=== PATIENT | female | born 1990 | race Caucasian/White ===

== ENCOUNTER 2016-11-28 02:04 | Outpatient (CLI) | payer BC, OTHER ==
[~2016-11-28] VITALS: Ht 162.6 cm; Wt 79.5 kg
[~2016-11-28 02:04] MED LIST: BCPILLS PO; VITAMINS
[2016-11-28] MEDS ORDERED: PRENTAB26 PO (03:38)
[2016-11-28 03:39] VITALS: Ht 162.6 cm; Wt 79.5 kg
[2016-11-28] MEDS ORDERED: VALA1TAB2 PO (03:50)
--- NOTE | 2016-11-28 05:12 | Discharge Instructions ---
Discharge Instructions Date of Service Nov 28, 2016. Admission Reason for Admission: Iup,Labor Check Discharge Discharge Diagnosis / Problem: No LOF Discharge Goals Goal(s): Continuing OB care Activity Recommendations Activity Limitations: as noted below Lifting Limitations: no more than 10 pounds Exercise/Sports Limitations: until after follow-up appointment May Resume Sexual Activity: after follow-up appointment Shower/Bathe: no limitations Driving or Machine Use: no limitations SPECIAL CARE INSTRUCTIONS: Call Doctor if: * Regular contractions every 5 minutes or greater than 5 contractions in one hour. * Bleeding * Water breaks or is leaking * Decreased movement * Fever >100.4 degrees F * Pain not relieved by routine measures or pain medication ordered. FOLLOW UP VISIT: Return to Labor and Delivery on for /call for appointment time . Follow-up Visit with: When: . Current Hospital Diet Patient's current hospital diet: Discharge Diet Recommended Diet: Regular Diet Pending Studies Studies pending at discharge: yes List of pending studies: GARETH Medical Emergencies . Who to Call and When: Medical Emergencies: If at any time you feel your situation is an emergency, please call 911 immediately. . Non-Emergent Contact Non-Emergency issues call your: Surgeon Call Non-Emergent contact if: temperature is above 100.5 . . "Provider Documentation" section prepared by Catarina Maurer. VTE Core Measure Inpt VTE Proph given/why not?: Treatment not indicated
[2016-12-01] MEDS ORDERED: MTR600X PO (09:46)
== END 2016-11-28 05:21 | disposition home or self-care (01) ==
LOC: C.LD 02:04 → C.OPB 02:04 → EDSTATUS 11-30 02:03
PROVIDERS: ATTEND Obstetrics & Gynecology
DX: O62.9 Abnormality of forces of labor, unspecified (principal); Z3A.39 39 weeks gestation of pregnancy

== ENCOUNTER 2016-11-29 08:13 | Inpatient (IN) | payer BC ==
[~2016-11-29] VITALS: Ht 162.6 cm; Wt 79.5 kg
[~2016-11-29 08:13] MED LIST changes: -BCPILLS PO; +PRENTAB26 PO; +VALA1TAB2 PO; -VITAMINS
[2016-11-29 08:30] VITALS: Ht 162.6 cm; Wt 79.5 kg
[2016-11-29] MEDS ORDERED: LACTATED RINGER'S 1000ML 1,000 ML IV PRN (09:06)
[2016-11-29] MEDS ORDERED: LACTATED RINGER'S 1000ML 1,000 ML IV SCH (09:06)
[2016-11-29 09:41] LABS: HEMATOCRIT 40.3 % (37-47); MEAN CELL VOLUME 85.7 fL (80-100); MEAN CORPUSCULAR HEMOGLOBIN 30.9 pg (25-34); MEAN PLATELET VOLUME 10.7 fL (7.4-10.4); PLATELET COUNT 259 K/uL (130-400); WHITE BLOOD COUNT 16.07 K/uL (4.8-10.8)
--- NOTE | 2016-11-29 11:26 | HISTORY & PHYSICAL EXAMINATION ---
DATE OF ADMISSION: 11/29/2016 The patient is a 26-year-old G1, P0, due date is 11/30/2016, making her 39 weeks and 6 days today. The patient presented to labor and delivery with complaints of contractions every 4-5 minutes. The patient was seen yesterday with GARETH of 6.0. She was scheduled for induction today anyway. On arrival in labor and delivery, the patient had no shortness of breath, no chills, no fever. heart rate is category 1. Pelvic exam by nurse shows she is 4 cm dilated. course has been unremarkable except for decreased GARETH of 6 when she was seen yesterday. Evaluation showed no rupture of membranes. PAST MEDICAL HISTORY: 1. History of bone fracture. 2. History of abnormal Pap smear. 3. History of endometriosis. 4. History of depression. 5. History of cold sores. PAST SURGICAL HISTORY: History of femur repair, colposcopy, dental surgery, and history of eyelid surgery. ALLERGIES: No known drug allergies. SOCIAL HISTORY: The patient denies tobacco, drug or alcohol use. PHYSICAL EXAMINATION: GENERAL: Well-developed, well-nourished white female, in no acute distress. HEART: S1, S2, regular rhythm and rate. LUNGS: Clear to auscultation bilaterally. ABDOMEN: Nontender, gravid. heart rate is category 1. EXTREMITIES: No cyanosis, clubbing or edema. PELVIC: The patient is 4 cm dilated. No lesions on the vulva. ASSESSMENT AND PLAN: 1. A 26-year-old G1, P0, at 39 and 6 weeks in labor. 2. Oligohydramnios, GARETH of 6.0. Plan is to anticipate vaginal delivery.
[2016-11-29] MEDS ORDERED: NURSING VERBAL MED ORDER ONE (17:30)
[2016-11-29] MEDS ORDERED: BUTORPHANOL TARTRATE 1 MG/ML VIAL IV ONE (17:30)
[2016-11-29] MEDS ORDERED: FENTANYL CITRATE INJ 50 MCG/1 ML 2 ML VIAL ONE (19:15)
[2016-11-29] MEDS ORDERED: BUPIVACAINE 0.25% 30 ML VIAL ONE (19:15)
[2016-11-29] MEDS ORDERED: FENTANYL 2MCG/ML ROPIV 1.25MG/ML 100ML BAG EPI ONE (19:15)
[2016-11-29] MEDS ORDERED: EpHEDrine SULFATE INJ 50 MG/ML AMP ONE (19:15)
[2016-11-29] MEDS ORDERED: NALOXONE HCL INJ 1 MG in SODIUM CHLORIDE 0.9% 1000ML 1,000 ML IV PRN (20:27)
[2016-11-29] MEDS ORDERED: LACTATED RINGER'S 1000ML 500 ML IV PRN ×2 (20:27→20:35)
[2016-11-29] MEDS ORDERED: NALOXONE HCL INJ 0.4 MG/1 ML VIAL/CARP IV PRN (20:30)
[2016-11-29] MEDS ORDERED: DiphenhydrAMINE HCL 50 MG/ML VIAL IV PRN (20:30)
[2016-11-29] MEDS ORDERED: EpHEDrine SULFATE INJ 50 MG/ML AMP IV PRN (20:30)
[2016-11-29] MEDS ORDERED: NALBUPHINE HCL INJ 10 MG/ML AMP IV PRN (20:30)
[2016-11-29] MEDS ORDERED: ONDANSETRON INJ 2 MG/ML 2 ML VIAL IV PRN (20:30)
[2016-11-29] MEDS ORDERED: FENTANYL 2MCG/ML ROPIV 1.25MG/ML 100ML BAG EPI PRN (20:30)
[2016-11-29] MEDS ORDERED: OXYTOCIN 30 UNITS/500ML NSS IV PRN (20:45)
[2016-11-30] MEDS ORDERED: OXYTOCIN 30 UNITS/500ML NSS IV PRN (00:45)
[2016-11-30] MEDS ORDERED: ACETAMINOPHEN/CODEINE 300/30MG TAB PO PRN ×2 (00:45)
[2016-11-30] MEDS ORDERED: OXYCODONE/ACETAMINOPHEN 5-325 TAB PO PRN (00:45)
[2016-11-30] MEDS ORDERED: ACETAMINOPHEN 325 MG TAB PO PRN (00:45)
--- NOTE | 2016-11-30 01:12 | Anesthesia Procedure Note ---
Anesthesia Epidural Removal Nt Date & Time Nov 30, 2016 at 01:12 Vital Signs Pain Intensity: 1.0 Notes Mental Status: alert / awake / arousable, participated in evaluation Nausea / Vomiting: adequately controlled Pain: adequately controlled Airway Patency, RR, SpO2: stable & adequate BP & HR: stable & adequate Hydration State: stable & adequate Neuraxial Anesthesia: was administered, sensory block is resolved Anesthetic Complications: no major complications apparent, pt satisfied with anesthetic care Epidural: removed without complications, with tip intact
[2016-11-30] MEDS: IBUPROFEN 600 MG TAB PO PRN ×4 (01:56→20:18)
[2016-11-30 03:30] VITALS: BP 130/72; PULSE 97; TEMP 36.7
[2016-11-30] MEDS ORDERED: BENZOCAINE 20% AER SPR 82.5 GM CAN ONE (05:11)
[2016-11-30] MEDS: PRENATAL VITAMIN TAB PO SCH (07:59)
[2016-11-30] MEDS: DOCUSATE SODIUM 100 MG CAP PO SCH ×2 (07:59→20:16)
--- NOTE | 2016-11-30 08:08 | DELIVERY SUMMARY ---
DATE OF OPERATION: 11/30/2016 DELIVERY NOTE The patient delivered a live female in occiput anterior presentation. Once infant was delivered it was placed on the mother's abdomen. Cord was clamped and cut. Cord gas and cord blood were obtained. Placenta was spontaneously delivered. Inspection of the perineum showed a second-degree midline laceration, which was repaired in layers with 2-0 Vicryl. Rectal exam post repair showed good sphincter tone. No sutures are palpated in the rectum. Estimated blood loss is 400 mL. The patient's weight is pending. Apgars are 8 and 9. The mother and baby are doing well in recovery status post hemostasis. All instruments were removed from the vagina and accounted for x2 including sponges and needles. I attest to the content of the Intraoperative Record and any orders documented therein. Any exceptio ns are noted below.
[2016-11-30 08:40] VITALS: BP 129/90; PULSE 60; TEMP 36.6
[2016-11-30 11:35] VITALS: BP 113/75; PULSE 87; TEMP 36.9
[2016-11-30] MEDS ORDERED: DIPHTHERIA/TETANUS/PERTUSSIS 0.5 ML SYR/VIAL IM. ONE (13:30)
[2016-11-30 15:30] VITALS: BP 121/80; PULSE 85; TEMP 37.1; O2SAT 98
[2016-11-30 20:05] VITALS: BP 122/80; PULSE 82; TEMP 37; O2SAT 97
[2016-11-30 23:35] VITALS: BP 118/76; PULSE 86; TEMP 36.9; O2SAT 98
[2016-12-01] MEDS: IBUPROFEN 600 MG TAB PO PRN ×2 (06:33→10:28)
[2016-12-01] MEDS: PRENATAL VITAMIN TAB PO SCH (07:59)
[2016-12-01] MEDS: DOCUSATE SODIUM 100 MG CAP PO SCH (07:59)
[2016-12-01 08:24] LABS: HEMATOCRIT 32.8 % (37-47)
[2016-12-01 08:30] VITALS: BP 119/75; PULSE 73; TEMP 36.6; O2SAT 98
--- NOTE | 2016-12-01 09:45 | OB/GYN Progress Note ---
[employer] Progress Note Date of Service Dec 01, 2016. Subjective conversation w/ patient, physical exam Ambulation: ambulating normally Voiding: no voiding problems Passing Gas: Yes Diet Tolerance: Regular Diet Lochia: Moderate Feeding Type: Breast Feeding Review of Systems Constitutional: No chills, No fatigue, No fever, No problem reported, No sweats , No weakness, No weight loss Respiratory: No cough, No dyspnea at rest, No dyspnea on exertion, No hemoptysis, No problem reported, No shortness of breath, No sputum, No wheezing Cardiac: No PND, No chest pain, No claudication, No edema, No orthopnea, No palpitations, No problem reported Breast: No breast lump, No breast pain, No change in shape, No nipple discharge , No problem reported, No see HPI Abdomen: No GI bleeding, No constipation, No diarrhea, No nausea, No pain, No problem reported, No vomiting Female : No abnormal vaginal bleeding, No dysuria, No hematuria, No incontinence, No problem reported, No see HPI, No urinary frequency, No vaginal discharge Objective Vital Signs Date Time Temp Pulse Resp B/P Pulse Ox O2 Delivery O2 Flow Rate FiO2 12/01/16 08:30 36.6 73 20 119/75 98 Room Air 11/30/16 23:35 98 Room Air 11/30/16 23:35 36.9 86 16 118/76 98 Room Air 11/30/16 20:05 37.0 82 18 122/80 97 Room Air 11/30/16 15:30 98 Room Air 11/30/16 15:30 37.1 85 18 121/80 98 Room Air 11/30/16 11:35 36.9 87 20 113/75 Physical Exam General Appearance: WELL-APPEARING, WD/WN Respiratory/Chest: chest non-tender, lungs clear, normal breath sounds, no respiratory distress, no accessory muscle use Cardiovascular: regular rate, rhythm, no edema, no gallop, no JVD, no murmur Abdomen: normal bowel sounds, non tender, soft, no organomegaly, no pulsatile mass Fundus: Firm Incision Description: Clean, Dry & Intact Extremities: normal range of motion, non-tender, normal inspection, no pedal edema, no calf tenderness Laboratory Results Last 24 Hours Test 12/01/16 08:02 Hemoglobin 11.5 g/dL Hematocrit 32.8 % Assessment and Plan Day Number: 1 Continue Routine Care: VD day #1 pt doing well disch home with instructions
[2016-12-01] MEDS ORDERED: MTR600X PO (09:46)
--- NOTE | 2016-12-01 09:47 | Discharge Instructions ---
Discharge Instructions Date of Service Dec 01, 2016. Admission Reason for Admission: LABOR Discharge Discharge Diagnosis / Problem: Discharge Goals Goal(s): Routine recovery after delivery Activity Recommendations Activity Limitations: as noted below ACTIVITY RECOMMENDATIONS: * Gradual return to full activity over the next 2-3 weeks. * No lifting - nothing heavier than baby over the next 2-3 weeks. * Do not engage in vigorous exercise, sexual activity or sports until cleared by your physician. * Do not drive or operate any motorized equipment until cleared by your physician. * You may shower/bathe daily. BREAST CARE: If you are not breast feeding: * Wear a supportive bra 24 hours a day for one to two weeks. * Avoid stimulating your breasts and nipples as much as possible during the first few weeks after delivery. * When taking a shower, have the warm water hit your back, not breasts. * When your breasts feel full, apply ice packs. Usually three to four times a day helps ease the discomfort. * Take a mild pain medication (Tylenol/Motrin) when you are uncomfortable. If breast feeding: * Use breast milk to lubricate nipples. Lansinoh cream may be used for sore nipples. You do not need to remove cream prior to breast feeding. If using a different brand of cream, check the label for directions regarding removal of cream prior to nursing. * Wear a supportive bra. * If having problems with breasts or breast feeding, call a outside sales consultant or your health care provider. EPISIOTOMY CARE: After delivery, if you have an episiotomy (stitches), the following steps will ease discomfort and aid healing. * For the first 24 hours after delivery, place ice packs next to your episiotomy to help reduce swelling. * After the first 24 hour-period, sitz baths, either portable or in the tub, are suggested. A shower with a shower arm sprayed over the episiotomy may be comforting. * Shannon care should be done after each voiding and bowel movement. Squirt warm water from a plastic bottle over the perineum (region of the body between the anus and urinary opening) and pat dry. * Use Dermoplast to ease discomfort. Shake container. [place] directly over the episiotomy. * Place a Tucks on a clean sanitary pad next to your episiotomy. OVER THE COUNTER MEDICATION: * For discomfort or pain, you may use Acetaminophen (Tylenol), Ibuprofen (Advil ), or Naproxen (Aleve) following the package directions. * For constipation you may use Colace following the package directions. SPECIAL CARE INSTRUCTIONS: When you are discharged from the hospital, it is important for you to follow the instructions listed below: * During the first week at home, you should be able to care for yourself and your baby. In addition, the usual light household activities are encouraged. * Limit your activities to the way you feel. Do not try to clean the house or move furniture. Be sensible. * If you actively engage in sports and have done so up until the time of your delivery, you may resume these activities as soon as you feel able. This may take up to one month or even longer. Use good judgment. * Continue to take your vitamins for at least six weeks after the of your baby. * Your diet need not be limited unless you were on a special diet before your delivery. Breast-feeding mothers need around 2500 calories per day and at least 64-80 ounces of fluid per day (8 to 10 glasses). * You should eat foods from the four major food groups. Crash diets or fad diets are to be avoided. Eating lean meats, fresh fruits and vegetables, low-fat dairy products, high fiber foods and a regular exercise program, will help you get back to your pre- weight without putting your health at risk. * Constipation is sometimes a problem after delivery. Take a mild laxative as needed. If breast feeding, Milk of Magnesia is acceptable to use. You may use a suppository or Fleets enema if no episiotomy. * A daily shower or tub bath is suggested. Be sure to thoroughly and gently dry the perineum. * A bloody vaginal discharge will usually continue until around four weeks post . A small amount of bleeding may continue for as long as six weeks. Vaginal discharge changes from the bright red bleeding after delivery to pink then brownish and finally yellowish-pink before becoming white and disappearing. * Bleeding may increase with activity. Your first period may come in 4-8 weeks. If you are breast feeding, your period may be delayed even longer. * [place] (sex) can begin whenever both you and your partner feel comfortable and do not have any form of genital infection. It is recommended that you wait until after your return appointment and discuss with your physician. If you have questions, please talk to your health care practitioner. A condom should be used to prevent infection and . * Foreplay, gentle intercourse and lubrication is very important the first several times to prevent pain. A water-based lubricant such as K-Y jelly or Astroglide may be used. * Tampons may be used six weeks after delivery. * Douching should be avoided for 6 weeks after delivery. * If you have RH negative blood and your baby is RH positive, you will receive RHOGAM by injection prior to discharge. The nurse will give you a card to keep with you that has the date and place that you received RHOGAM after delivery. * During your care, you had a Rubella screen done to check for the presence of rubella antibodies in your blood. If your test was negative, you will receive a Rubella vaccine prior to discharge. This vaccine may cause a fever, soreness at the injection site and flu-like symptoms. If these symptoms persist, notify your health care practitioner. is not advised for three months after a Rubella vaccine. There is a higher chance of having a baby with defects if conceived within three months of getting the vaccine. * If you were discharged 24 hours from delivery or before 48 hours: Visiting nurses will come to your home 48 hours after discharge to assess you and your baby. The visiting nurse will meet with you while you are in the hospital to arrange a time and get directions to your home. * Verbalizes understanding of car seat law as reviewed with patient nursing. * Car Seat hand-out given and reviewed with patient by nursing. * Shaken baby information reviewed with patient by nursing. Call you doctor if: * Heavy bleeding (saturating several pads an hour) or passing clots the size of your fist. * A fever >101 degrees F (38.3 degrees C) on two occasions four hours apart and/or chills. * Unusual pain in the pelvic or vaginal areas. * "Baby Blues" lasting longer than two weeks. If you have any questions or concerns, call your health care practitioner at . FOLLOW-UP VISIT: * Please call the office at to schedule a 6 week examination. It is important you keep this appointment. * It is important for you to make arrangements for either yearly or twice yearly check-ups thereafter. . Current Hospital Diet Patient's current hospital diet: Regular OB Diet Discharge Diet Recommended Diet: Regular Diet Pending Studies Studies pending at discharge: no Medical Emergencies . Who to Call and When: Medical Emergencies: If at any time you feel your situation is an emergency, please call 911 immediately. . Non-Emergent Contact Non-Emergency issues call your: Specialist . . "Provider Documentation" section prepared by Joe Hairston. VTE Core Measure Inpt VTE Proph given/why not?: Treatment not indicated
[2016-12-01 13:30] VITALS: BP_DIAS 75; PULSE 73; TEMP 36.6
[2016-12-01] MEDS ORDERED: BISACODYL 5 MG TABEC PO SCH (20:00)
[2016-12-02] MEDS ORDERED: BISACODYL 10 MG SUPP PR PRN (07:00)
== END 2016-12-01 13:40 | disposition home or self-care (01) | DRG 775 ==
LOC: C.LD 08:13 → C.OPB 08:13 → C.LD 23:00 → C.OBG 11-30 10:39
PROVIDERS: ADMIT Obstetrics & Gynecology; ATTEND Obstetrics & Gynecology
PROC: 0KQM0ZZ Repair Perineum Muscle, Open Approach (ICD-10-PCS; principal; 2016-11-30)
PROC: 10E0XZZ Delivery of Products of Conception, External Approach (ICD-10-PCS; principal; 2016-11-30)
DX: O48.0 Post-term pregnancy (principal); Z3A.40 40 weeks gestation of pregnancy; O70.1 Second degree perineal laceration during delivery; Z37.0 Single live birth

== ENCOUNTER 2017-07-27 23:50 | Emergency (ER) | payer BC ==
[~2017-07-27] VITALS: Ht 162.6 cm; Wt 70.4 kg
[~2017-07-27 23:50] MED LIST changes: +MTR600X PO
[2017-07-27 23:58] VITALS: TEMP 36.7; Ht 162.6 cm; Wt 70.4 kg
[2017-07-28] MEDS ORDERED: KETOROLAC TROMETHAMINE 60 MG/2 ML VIAL IM STA (00:05)
[2017-07-28] MEDS ORDERED: PSEUDOEPHEDRINE HCL 30 MG TAB PO STA (00:05)
[2017-07-28] MEDS ORDERED: AMOXICIL/CLAVU 875MG HOME PACK PO ONE ×2 (00:15→00:30)
[2017-07-28] MEDS ORDERED: OXYCODONE IR HOME PACK PO ONE (00:15)
[2017-07-28] MEDS ORDERED: BCPILLS PO (00:16)
--- NOTE | 2017-07-28 00:23 | EMERGENCY ROOM VISIT NOTE ---
History First contact with patient: 00:01 Chief Complaint: ILLNESS Stated Complaint: ABINS, RIGHT EAR PAIN, DRAINING IN LEFT EAR,NECK PAIN History of Present Illness The patient is a 27 year old female who presents to the Emergency Room with complaints of bilateral ear pain, headache, congestion and runny nose for the past several days who saw the family care doctor at the beginning the week and was given Z-Holden for negative strep test. Patient states she has no more sore throat but her ear pain has increased dramatically. Patient denies neck stiffness, chest pain, dyspnea, abdominal pain, vomiting, diarrhea. She describes the pain as throbbing, ranging in severity 7 out of 10 both ears right greater than left. Review of Systems See HPI for pertinent positives & negatives. A total of 10 systems reviewed and were otherwise negative. Past Medical/Surgical History Medical Problems: (1) (2) Vaginal discharge Social History Smoking Status: Never Smoker Alcohol Use: none Drug Use: none Marital Status: in relationship Occupation Status: employed Current/Historical Medications Scheduled Multivit/Min/Iron/Fol Ac/Pren ( Vitamin), 1 TAB PO DAILY Valacyclovir Hcl (Valtrex), 1,000 MG PO BID Scheduled PRN Ibuprofen (Ibuprofen), 600 MG PO Q4H PRN for PAIN, BAINS, CRAMPING OR FEVER Physical Exam Vital Signs Date Time Temp Pulse Resp B/P (MAP) Pulse Ox O2 Delivery O2 Flow Rate FiO2 07/27/17 23:58 36.7 90 20 117/72 98 Room Air Physical Exam VITALS: Vitals are noted on the nurse's note and reviewed by myself. Vital signs stable. GENERAL: White female, in no acute distress, nondiaphoretic, well-developed well -nourished. SKIN: The skin was without rashes, erythema, edema, or bruising. There is no tenting of the skin. Capillary reflex less than 2 seconds. HEAD: Normocephalic atraumatic. EARS: External auditory canals clear, bilateral tympanic membranes bulging consistent with bilateral otitis media with no mastoid tenderness bilaterally. EYES: Pupils equal round and reactive to light and accommodation. Conjunctivae without injection, sclerae without icterus. Extraocular movements intact. NOSE: Patent, turbinates without inflammation or discharge. No sinus tenderness. MOUTH: Mucous membranes moist. Pharynx without erythema or exudate. Uvula midline. Airway patent. Tongue does not deviate. NECK: Supple without nuchal rigidity. Bilateral submandibular lymphadenopathy. No thyromegaly. Cervical spine is nontender. No JVD. No meningeal signs HEART: Regular rate and rhythm without murmurs gallops or rubs. LUNGS: Clear to auscultation bilaterally without wheezes, rales or rhonchi. No dullness to percussion. No retractions or accessory muscle use. ABDOMEN: Positive bowel sounds x 4. Normal tympanic percussion. Soft, nontender, without masses or organomegaly. Hinds sign negative. No guarding or rebound tenderness. MUSCULOSKELETAL: No muscle atrophy, erythema, or edema noted. NEURO: Patient was alert and oriented to person place and time. Normal sensation to light and sharp touch. No focal neurological deficits. Medical Decision & Procedures ED Course Prior records/ancillary studies reviewed. Triage Nursing notes reviewed. Additional history obtained from boyfriend The patient's history was concerning for a cold symptoms with ear pain. Differential diagnosis: Etiologies such as viral syndrome, tonsillitis, streptococcal pharyngitis, mononucleosis, peritonsillar abscess, retropharyngeal abscess, otitis, pneumonia , influenza, as well as others were entertained. ER treatment provided: Augmentin, OxyIR, Sudafed On reassessment the patient felt better. Diagnostics interpreted by me: deferred This appears to be consistent with B OM. Patient had no signs of mastoiditis or meningitis. She is well-appearing. She was started on Augmentin for her bilateral otitis media and advised to stop the Z-Holden. She had no signs of airway compromise and she is well-appearing. She is advised take cold medicines as directed and to follow-up family care in a few days or here in the ER sooner for headache, neck stiffness, high fevers, worsening signs or symptoms or as needed. By the evaluation outlined above emergent etiologies such as peritonsillar abscess, retropharyngeal abscess, pneumonia, meningitis , urinary tract infection, sepsis, bacteremia, as well as others were deemed relatively unlikely. The pt informed about the findings as listed above. All questions were answered and pleased with the treatment. Return instructions were outlined and the patient was discharged in stable condition. Outpatient prescription management: augmentin Referral: The patient was referred back to their primary care physician for follow-up in 2 to 3 days for a recheck of the current condition. Medical Decision As above Medication Reconcilliation Current Medication List: was personally reviewed by me Blood Pressure Screening Patient's blood pressure: Normal blood pressure Impression Primary Impression: Bilateral otitis media Departure Information Dispostion Home / Self-Care Condition GOOD Referrals Gavin Moore M.D. (PCP) Patient Instructions My [facility] Additional Instructions Stop your Z-Holden. Amoxicillin Clavulanate (Augmentin) 875mg: Take one pill twice daily for 10 days for your infection. All antibiotics can cause diarrhea. If this occurs and you feel worse or it does not resolve in 1-2 days follow up with your doctor or return to the Emergency Department as this could be signs of serious underlying problems. Any medication can cause an allergic reaction, stop the pills immediately and return to the ER for rash, hives, breathing difficulties, or swelling. Acetaminophen(Tylenol) may be used for fever or pain. Use 1000mg every six hours as needed. Avoid using more than 3000mg in a 24 hour period. (AND/OR) Ibuprofen(Motrin, Advil) may be used for fever or pain. Use 600mg every six hours as needed. Take with food. Avoid using more than 2400mg in a 24 hour period. Do not use 2400mg per day for more than three consecutive days without physician direction. Prolonged inappropriate use can lead to stomach upset or ulcers. Afrin nasal spray: 2-3 sprays to each nostril twice daily as needed for congestion. Do not use for more than 3-4 days because it can lead to worsening rebound congestion. Pseudoephedrine(Sudaphed): 30-60mg every 6 hours as needed for nasal congestion. Do not take this with other stimulant products or supplements. Rest and drink plenty of fluids. Controlling your fever with Tylenol and Ibuprofen as above will make you feel better. Wash your hands after nose blowing, sneezing, or coughing. Most germs are spread through contact, therefore improper hygiene may result in your close contacts and loved ones becoming ill just like you. Continue current medications. Return to the ER for severe headache, neck stiffness, chest pain, difficulty breathing, fevers, vomiting, worsening of your condition, or as needed. Follow up with your primary physician this week for a recheck of your current condition. Problem Qualifiers Primary Impression: Bilateral otitis media Otitis media type: suppurative Chronicity: acute Recurrence: not specified as recurrent Spontaneous tympanic membrane rupture: without spontaneous rupture Qualified Codes: H66.003 - Acute suppurative otitis media without spontaneous rupture of ear drum, bilateral
[2017-07-28] MEDS ORDERED: AMOX875T PO (00:24)
[2017-07-28 00:30] VITALS: BP 114/67; PULSE 77; O2SAT 97
== END 2017-07-28 00:30 | disposition home or self-care (01) ==
LOC: C.EDB 23:52 → C.EDA 07-28 00:30
DX: H66.93 Otitis media, unspecified, bilateral (principal)